=== PATIENT | male | born 1975 | race Caucasian/White ===

== ENCOUNTER 2017-08-27 03:14 | Emergency (ER) | payer OTHER ==
[~2017-08-27] VITALS: Ht 180.3 cm; Wt 116.6 kg
[2017-08-27] MEDS ORDERED: IV NS 0.9% 1,000 ML BAG IV ONE (03:30)
--- NOTE | 2017-08-27 05:26 | NUR ---
PT ASLEEP, NO ACUTE DISTRESS NOTED, RESP EVEN AND UNLABORED. CALL LIGHT WITHIN REACH.
--- NOTE | 2017-08-27 06:45 | NUR ---
Patient removed IV. Catheter intact and site benign. Pressure and 4x4 applied to site. No bleeding noted.
--- NOTE | 2017-08-27 07:08 | NUR ---
Patient discharged to home in stable condition. Instructed not to drive; pt states will call friend for transport home and will wait in waiting room. Written and verbal after care instructions given. Patient verbalizes understanding of instruction. Pt ambulatory with a steady gait. VSS, NAD noted on DC. Denies complaint on DC.
[2017-08-27 07:11] VITALS: BP 138/93
== END 2017-08-27 07:12 | disposition home or self-care (01) ==
LOC: ER 03:18
DX: F10.129 Alcohol abuse with intoxication, unspecified (principal); R73.09 Other abnormal glucose
CPT/HCPCS: 82962-TC; A4606; J7030; Z7610